=== PATIENT | female | born 1980 | race African-American/Black ===

== ENCOUNTER 2016-09-23 14:23 | Emergency (ER) | payer MEDICAID, MEDICARE ==
[~2016-09-23] VITALS: Ht 175.3 cm; Wt 68.0 kg
[2016-09-23 19:30] VITALS: BP 104/70
[2016-09-23] MEDS ORDERED: cefTRIAXone SOD 1,000 MG VL IM ONE (19:30)
== END 2016-09-23 20:06 | disposition home or self-care (01) ==
LOC: ER 15:00
DX: J03.90 Acute tonsillitis, unspecified (principal); N39.0 Urinary tract infection, site not specified; G35 Multiple sclerosis
CPT/HCPCS: 96372; 99283; J0696